=== PATIENT | female | born 1980 | race Hispanic/Latino ===

== ENCOUNTER 2016-09-21 20:16 | Emergency (ER) | payer OTHER ==
[~2016-09-21] VITALS: Ht 167.6 cm; Wt 81.0 kg
[~2016-09-21 20:16] MED LIST: ALPR0.5T PO; AMT50T PO; ATEN50TA PO; BUPR100T6 PO; BUPR150T12 PO; CITA20TA11 PO; HYDR-4003 PO; ONDA4TAB6 PO; RANI150T11 PO
[2016-09-21 20:20] VITALS: BP 131/87; PULSE 100; RESP 18; O2SAT 96
[2016-09-21] MEDS ORDERED: TdaP Vaccine 0.5 mL Inj IM ONE (20:25)
[2016-09-21] MEDS ORDERED: Lidocaine 1% 50 mL Inj NERVEBLOCK ONE (20:25)
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
[2016-09-21 21:46] VITALS: BP 132/77; PULSE 88; RESP 16; O2SAT 97
== END 2016-09-21 21:47 | disposition home or self-care (01) ==
LOC: SED 20:16
DX: S01.81XA Laceration without foreign body of other part of head, initial encounter (principal); W01.110A Fall on same level from slipping, tripping and stumbling with subsequent striking against sharp glass, initial encounter; Y93.9 Activity, unspecified; Y92.9 Unspecified place or not applicable; Y99.9 Unspecified external cause status; I10 Essential (primary) hypertension; Z79.899 Other long term (current) drug therapy; Z88.8 Allergy status to other drugs, medicaments and biological substances; Z23 Encounter for immunization

== ENCOUNTER 2017-02-12 20:25 | Emergency (ER) | payer OTHER ==
[~2017-02-12] VITALS: Ht 167.6 cm; Wt 72.7 kg
[2017-02-12 20:41] VITALS: BP 134/78; PULSE 82; RESP 18; O2SAT 100
[2017-02-12] MEDS ORDERED: Ondansetron 2 mg/mL 2 mL Inj IVPUSH ONE (20:55)
[2017-02-12] MEDS ORDERED: HYDROmorphone 0.5 mg/0.5 mL iSecure Syringe IVPUSH PRN (20:55)
[2017-02-12 21:15] LABS: BASOPHILS % (AUTO) 0.2 % (0-3); MONOCYTES % (AUTO) 8.6 % (4-12); Mean Corpuscular Hemoglobin 30.2 pg (27.0-35.0); Mean Corpuscular Volume 89.4 fL (81-100); NEUTROPHILS % (AUTO) 59.6 % (40-74); Platelet Count 138 bil/L (150-400)
[2017-02-12 21:19] VITALS: BP 124/79; PULSE 68; RESP 11; O2SAT 99
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
[2017-02-12 21:27] LABS: INR 0.94 ratio
[2017-02-12 21:45] LABS: Lipase 37 U/L (13-60)
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
[2017-02-12] MEDS ORDERED: _HYDROcodone/APAP 5-325 mg Tablet PO PRN (23:00)
[2017-02-12] MEDS ORDERED: HYDR-4003 PO (23:10)
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
== END 2017-02-12 23:30 | disposition home or self-care (01) ==
LOC: SED 20:25
DX: S20.212A Contusion of left front wall of thorax, initial encounter (principal); S30.1XXA Contusion of abdominal wall, initial encounter; S22.32XA Fracture of one rib, left side, initial encounter for closed fracture; S27.0XXA Traumatic pneumothorax, initial encounter; V47.5XXA Car driver injured in collision with fixed or stationary object in traffic accident, initial encounter; Y93.89 Activity, other specified; Y92.410 Unspecified street and highway as the place of occurrence of the external cause; Y99.8 Other external cause status; I10 Essential (primary) hypertension; Z88.8 Allergy status to other drugs, medicaments and biological substances
CPT/HCPCS: 36415; 71010; 74177; 80053; 83690; 84703; 85025; 85610; 86850; 99284; Q9967